=== PATIENT | male | born 1965 | race African-American/Black ===

== ENCOUNTER 2023-09-18 09:58 | Emergency (ER) | payer MEDICAID, OTHER ==
[~2023-09-18] VITALS: Ht 182.9 cm; Wt 85.0 kg
[2023-09-18 10:13] VITALS: TEMP 99.9; O2SAT 96
[2023-09-18 11:09] LABS: BASOPHILS % 0.3 % (0.0-2.0); EOSINOPHILS % 1.5 % (0.0-5.0); HEMATOCRIT. 34.8 % (42.0-52.0); LYMPHOCYTES % 8.8 % (20.0-50.0); MEAN CORPUSCULAR HGB CONC 34.5 g/dL (31.0-37.0); MEAN CORPUSCULAR VOLUME 98.3 fL (80.0-94.0); MEAN PLATELET VOLUME 7.3 fl (7.4-10.4); MONOCYTES % 4.4 % (2.0-8.0); PLATELET 314 x1000/uL (130-400); RED BLOOD CELL COUNT 3.54 mill/uL (4.7-6.1); WHITE BLOOD COUNT 10.4 x1000/uL (4.5-11.0)
[2023-09-18 11:11] VITALS: BP 110/70; PULSE 85; RESP 16
[2023-09-18] MEDS: SODIUM CHLORIDE 0.9% 1,000 ML IV ONE (11:14)
[2023-09-18 11:20] LABS: ACETAMINOPHEN < 2 ug/mL (10-30); CALCIUM 8.7 mg/dL (8.7-10.4); CARBON DIOXIDE 19 mEq/L (21-32); CHLORIDE 107 mEq/L (98-107); ETHANOL BLOOD < 10 mg/dL (<10); GLUCOSE 121 mg/dL (70-105); POTASSIUM 3.4 mEq/L (3.5-5.1); SODIUM 138 mEq/L (136-145); UREA NITROGEN BLOOD 24 mg/dL (9-23)
[2023-09-18 15:07] LABS: *AMPHETAMINES SCREEN URINE PRESUMPTIVE POSITIVE (NEGATIVE); *BARBITURATES SCREEN URINE NEGATIVE (NEGATIVE); *BENZODIAZEPINES SCREEN URINE PRESUMPTIVE POSITIVE (NEGATIVE); *COCAINE SCREEN URINE PRESUMPTIVE POSITIVE (NEGATIVE); CANNABINOID URINE SCREEN PRESUMPTIVE POSITIVE (NEGATIVE); ECSTASY MDMA SCREEN URINE CONF.TEST INDICATED (NEGATIVE); METHADONE URINE SCREEN Neg (NEGATIVE); OPIATES URINE SCREEN NEGATIVE (NEGATIVE); PHENCYCLIDINE URINE SCREEN PRESUMTIVE POSITIVE (NEGATIVE)
== END 2023-09-18 15:21 | disposition home or self-care (01) ==
LOC: EDBD 09:58 → ER 09:58
DX: F19.90 Other psychoactive substance use, unspecified, uncomplicated (principal)
CPT/HCPCS: 80305; 80048; 80307; 80329; 80320; 85025; 36415; 96360; 99283; J7030; G0480